=== PATIENT | male | born 1965 | race Caucasian/White ===

== ENCOUNTER 2018-06-04 22:29 | Observation (INO) ==
--- NOTE | 2018-06-05 02:21 | Internal Med History&Physical ---
Date of Encounter: 06/05/18 Time of Encounter: 02:20 Internal Medicine - H&P: HPI Chief complaint: fever, diarrhea Admitted From: Hospital to Hospital Transfer Plans for Post Hospital Care: Home History of present illness: Mr. Marroquin is a 53 year old male with past medical history of rheumatoid arthritis, psoriatic arthritis presents to clinic or emergency room with complaint of fever, diarrhea. Patient states that he has had fever since yesterday with a MAXIMUM TEMPERATURE of 102. He states that he measured his temperature to feeling fatigued, lethargic, chills. He states that he recently returned from a trip from [place] on Monday and symptoms started the day after. Notably he is taking Plaquenil for his rheumatoid arthritis. Starting this evening, patient also admits to 2 episodes of diarrhea. He states that it is loose and watery and has a foul smell to it. Also admits to associated epigastric cramping abdominal pain without radiation. Admits to blurry vision once as well as dizziness on rising. Denies any hematochezia or melena. Denies any nausea, vomiting, chest pain, shortness of breath, cough, dysuria, urinary frequency. Denies any sick contacts, recent hospitalizations, change the medication, recent antibiotics. He normally is tolerating oral intake at this time. In the [facility] emergency room, patient was notably febrile upon presentation at 103.3, tachycardic 124. Laboratory results significant for WBC elevation of 14.2 with left shift, sodium 133, labs otherwise within normal limits. Chest x- ray was obtained at [facility] was negative for acute abnormalities. He was given Tylenol and ibuprofen for fever, cefepime, vancomycin as well as 31 L bolus. He was transferred to [facility] due to [facility] being at capacity. Past medical history as above Past surgical history is extensive, abdominal surgery includes appendectomy Social history: Denies smoking, alcohol or drug use Family history unremarkable Past Med Surg Social Fam HX - Past Medical History Medical history: hypertension, kidney stones, RA Psychiatric history: no psych history - Past Surgical History Surgical History: appendectomy, orthopedic, other Additional surgical history: Bilat knee scopes. Reconstruction surgery bilat shoulder. Skull surgery, ankle surgery, foot surgery - Social History Smoking Status: Never smoker Smokeless Tobacco Status: Yes Alcohol use: occasionally Drug use: none - Family History Mother Living Status: Still Living Hx Family Cardiac Disorders: No Hx Family Respiratory Disorders: No Hx Family Cancer: No Hx Family GI Disorders: No Hx Family Genitourinary Disorders: No Hx Family Endocrine Disorder: No Hx Family Musculoskeletal Disorders: No Hx Family Neuromuscular Disorders: No Hx Family Neurologic Disorders: No Hx Family HEENT Disorders: No Hx Family Autoimmune Disorders: No Hx Family Reproductive Disorders: No Hx Family Psychosocial Disorders: No Hx Family Medical Disorders: No Father Living Status: Age at : 73 Cause of : Kidney cancer Hx Family Cancer: Yes Internal Medicine - H&P: Meds Acetameniphen 2 PO PRN PRN 06/04/18 [History] Hydroxychloroquine Sulfate [Plaquenil] 200 mg PO DAILY 06/04/18 [History] 3 Allergy/AdvReac Type Severity Reaction Status Date / Time No Known Allergies Allergy Verified 06/04/18 20:38 All Systems PM: A 10-system review of systems was performed and is negative for pertinent findings except as documented above in the HPI. - Constitutional Constitutional: chills, fatigue, fever(s), lethargy, malaise, weakness - EENT Eyes: blurry vision - Cardiovascular Cardiovascular ROS IM: lightheadedness, no chest pain, no diaphoresis, no dyspnea, no dyspnea on exertion, no edema, no orthopnea, no palpitations - Respiratory Respiratory: no cough, no dyspnea, no dyspnea on exertion, no wheezing, no change in phlegm color - Gastrointestinal Gastrointestinal: abdominal pain, change in bowel habits, change in stool character, cramping, diarrhea, loose stools, no bloating, no coffee ground emesis, no constipation, no dyspepsia, no early satiety, no hematemesis, no hematochezia, no melena, no nausea, no vomiting - Genitourinary Genitourinary ROS male: no dysuria, no hematuria, no urinary frequency - Integumentary Integumentary IM: rash (psoriasis, chronic) - Neurological Neurological ROS: weakness, no headache(s), no numbness, no tingling - Constitutional Vitals: Temp Pulse Resp BP Pulse Ox 99.0 F 102 17 113/79 95 06/05/18 01:15 06/05/18 01:15 06/05/18 01:15 06/05/18 01:15 06/05/18 01:15 Exam: Gen.: Vitals noted. No acute distress. AAOx3, resting comfortably in bed. HEENT: PERRL/EOMI, oropharynx clear, Normocephalic, atraumatic, MMM. Bilateral xanthomas Cardiac: RRR, no murmur, +S1/S2. Mildly tachycardic Pulmonary: CTA bilaterally, no wheezes, rales or rhonchi, equal chest expansion Abdomen: soft, mildly tender to palpation in epigastric, BS noted, no guarding, no rebound. Extremities: mild BLE edema, nontender calf, no cyanosis or clubbing, psoriatic lesion on left leg and back. patient reports chronic Neuro: A&Ox3, moves all extremities, no focal deficits Psych: Appropriate mood and behavior - Assessment and plan (1) Sepsis Current Visit: Yes Status: Acute Assessment and plan: - Septic on presentation meeting 3/4 sirs criteria including febrile with temperature of 103, tachycardic in 120s, WBC elevation at 14 - Likely etiology is GI given symptoms diarrhea. - Denies respiratory, urinary, integumentary, neurologic symptoms - Was started on cefepime and vancomycin at [facility] emergency room - Has already received 3 L normal saline bolus for resuscitation - Blood cultures drawn at [facility], GI panel pending Plan - Given immunocompromised status on Plaquenil for RA, will start on vancomycin and Zosyn - Patient is clinically improving. Tachycardia improved, temperature 99.0 - Maintenance fluids until diet is resumed tomorrow. Normal saline at 100 per hour - Low suspicion for C. difficile, minimal risk factors. We will not start oral vancomycin at this time Qualifiers: Sepsis type: sepsis due to unspecified organism Qualified Code(s): A41.9 - Sepsis, unspecified organism (2) Fever Current Visit: Yes Status: Acute Assessment and plan: As above and sepsis Likely infectious in etiology given diarrheal symptoms Continue Tylenol when necessary fever Qualifiers: Fever type: due to other condition Qualified Code(s): R50.81 - Fever presenting with conditions classified elsewhere (3) Gastroenteritis Current Visit: Yes Status: Acute Assessment and plan: As above Patient reports recent travel to [place] Low suspicion for C. difficile as above We will treat with supportive care via fluids, Tylenol Will start Antibiotics as above given immunocompromised status (4) DVT prophylaxis Current Visit: Yes Status: Acute Assessment and plan: Heparin 5000 units every 8 hours - Time Spent With Patient Total time spent is greater than 50% in coordination of care (as documented) at patient's floor/unit and/or counseling patient:
[2018-06-05] MEDS ORDERED: Naloxone 0.4 MG/ML INJ IVP PRN (02:56)
[2018-06-05] MEDS: 0.9 % Sodium Chloride 1,000 ML IVC SCH ×2 (03:45→14:00)
[2018-06-05 05:25] LABS: Basophils % 0.2 %; Eosinophils % 0.2 %; Hematocrit 43.4 % (37.5-50.1); Hemoglobin 14.4 g/dL (12.9-16.9); Immature Granulocytes % 0.2 % (0-4); Lymphocytes # 0.8 K/mcL (0.6-4.6); Lymphocytes % 6.6 %; Mean Corpuscular HGB Conc 33.2 g/dL (31.6-35.5); Mean Corpuscular Hemoglobin 29.7 pg (28.0-33.3); Mean Corpuscular Volume 89.5 fL (83.0-100.0); Mean Platelet Volume 10.9 fL (9.4-12.4); Monocytes # 0.6 K/mcL (0.0-1.3); Monocytes % 4.8 %; Neutrophils # 10.7 K/mcL (1.6-8.9); Platelet Count 159 K/mcL (140-400); Red Blood Count 4.85 M/mcL (4.19-5.50); Red Cell Distribution Width 13.1 % (11.5-14.5)
[2018-06-05 05:39] LABS: BUN/Creatinine Ratio 9 (6-26); Blood Urea Nitrogen 10 mg/dL (6-20); Carbon Dioxide 21 mEq/L (23-29); Chloride 105 mEq/L (98-107); Chol/HDL Ratio 3.9 (0-4.9); Glucose 112 mg/dL (70-105); Osmolality,Calculated 280 (280-300); Potassium 3.5 mEq/L (3.5-5.1); Sodium 135 mEq/L (136-145); eGFR For Non-African Americans > 60 (> 60)
[2018-06-05] MEDS: *HR* Heparin 5,000 UNIT/ML VIAL SQ SCH ×3 (06:06→22:12)
[2018-06-05] MEDS ORDERED: Piperacillin/Tazobactam 3.375 GM in 0.9 % Sodium Chloride Mini Bag 100 ML IVPB SCH (08:00)
[2018-06-05 09:44] LABS: Adenovirus F 40/41 PCR Not detected (Not detect); Astrovirus PCR Not detected (Not detect); C.difficile Toxin A/B by PCR Not detected (Not detect); Campylobacter by PCR Not detected (Not detect); Cryptosporidium by PCR Not detected (Not detect); Cyclospora cayetanensis PCR Not detected (Not detect); E. coli O157 by PCR Not detected (Not detect); Entamoeba histolytica PCR Not detected (Not detect); Enteroaggregative E.coli(EAEC) Not detected (Not detect); Enteropathogenic E.coli(EPEC) Not detected (Not detect); Enterotoxigenic E.coli (ETEC) Not detected (Not detect); Giardia lamblia PCR Not detected (Not detect); Norovirus GI/GII PCR Not detected (Not detect); Plesiomonas shigelloides PCR Not detected (Not detect); Rotavirus A PCR Not detected (Not detect); Sapovirus PCR Not detected (Not detect); Shig/EnteroinvasiveE coli EIEC Not detected (Not detect); Shigalike tox-prod E coli STEC Not detected (Not detect); Vibrio PCR Not detected (Not detect); Vibrio cholerae PCR Not detected (Not detect); Yersinia enterocolitica PCR Not detected (Not detect)
[2018-06-05 09:46] LABS: Salmonella PCR DETECTED (Not detect)
[2018-06-05] MEDS ORDERED: Aminoglycoside Consult 1 EACH MC ONE (10:38)
--- NOTE | 2018-06-05 13:29 | Internal Med Progress Note ---
Hospitalist Progress Note - Encounter Date of Encounter: 06/05/18 Time of Encounter: 13:29 - Subjective Interval History: 53-year-old male with rheumatoid arthritis and morbid obesity on Plaquenil at home with admitted and being managed for sepsis secondary to Salmonella enteritis. GI panel significant for Salmonella typhi. Patient continues to have diarrhea, hemodynamically stable, electrolytes are within normal limits. Admitting team had started patient on vancomycin and Zosyn. We will de-escalate antibiotics to ciprofloxacin IV every 12 hours. - Exam Vitals: Temp Pulse Resp BP Pulse Ox 98.5 F 92 18 126/83 95 06/05/18 11:14 06/05/18 11:14 06/05/18 11:14 06/05/18 11:14 06/05/18 11:14 Exam: VSS, now afebrile Gen: not in any form of distress, morbidly obese Neuro: No focal deficits HEENT: Xanthelasma, Moist oral mucosa, anicteric, not pale, no cyanosis Chest: CTAB Heart: S1, S2 only, no m/g/r, no JVD Abdomen: Soft, not tender, no palpably enlarged organs Extremities: No edema Skin: No rash - Assessment and Plan (1) Gastroenteritis Current Visit: Yes Status: Acute Assessment and Plan: Due to salmonella Continue supportive care IVF hydration Replace electrolytes prn Discontinue Vanco and Zosyn Start on Ciprofloxacin IV q12h Continue to monitor (2) Sepsis Current Visit: Yes Status: Acute Assessment and Plan: Met sepsis criteria on presentation with fever, tacycardia and leukocytosis Source is enteritis-Salmonella positive on stool panel Blood cultures prelim negative Received Cefepime, Vanco, Zosyn-discontinued Started on Ciprofloxacin 200mg IV q12h Continue IVF hydration Continue to monitor CBC Follow blood culture reports (3) DVT prophylaxis Current Visit: Yes Status: Acute Assessment and Plan: Heparin 5000 units every 8 hours (4) Salmonella enteritis Current Visit: Yes Status: Acute Assessment and Plan: as in sepsis (5) Morbid obesity Current Visit: Yes Status: Acute Assessment and Plan: encourage lifestyle modification - Time Spent with Patient Total time spent is greater than 50% in coordination of care (as documented) at patient's floor/unit and/or counseling patient: Plan of Care Discussed with: patient Internal Medicine: Result - Labs CBC & Chem 7: 06/05/18 04:55 06/05/18 04:55 Labs: Short CBC 06/05/18 Range/Units 04:55 WBC 12.2 H (4.3-11.1) K/mcL Hgb 14.4 (12.9-16.9) g/dL Hct 43.4 (37.5-50.1) % Plt Count 159 (140-400) K/mcL Neutrophils # 10.7 H (1.6-8.9) K/mcL BMP 06/05/18 04:55 Sodium 135 L Potassium 3.5 Chloride 105 Carbon Dioxide 21 L BUN 10 Creatinine 1.08 Glucose 112 H Calcium 9.0 Consult Discharge Plan - Plan Referrals: NONE,PCP [Primary Care Provider] - (2) Sepsis Qualifiers: Sepsis type: sepsis due to unspecified organism Qualified Code(s): A41.9 - Sepsis, unspecified organism
[2018-06-05] MEDS: Acetaminophen 325 MG TABLET PO PRN (15:39)
[2018-06-05] MEDS: *HR* HYDROcodone/Acet 5/325 mg TABLET PO PRN ×2 (17:23→22:12)
[2018-06-06 05:41] LABS: Basophils % 0.6 %; Eosinophils % 0.4 %; Hematocrit 39.9 % (37.5-50.1); Hemoglobin 13.3 g/dL (12.9-16.9); Immature Granulocytes % 0.1 % (0-4); Lymphocytes # 0.9 K/mcL (0.6-4.6); Lymphocytes % 13.1 %; Mean Corpuscular HGB Conc 33.3 g/dL (31.6-35.5); Mean Corpuscular Hemoglobin 29.8 pg (28.0-33.3); Mean Corpuscular Volume 89.3 fL (83.0-100.0); Mean Platelet Volume 11.2 fL (9.4-12.4); Monocytes # 0.4 K/mcL (0.0-1.3); Monocytes % 6.5 %; Neutrophils # 5.4 K/mcL (1.6-8.9); Platelet Count 139 K/mcL (140-400); Red Blood Count 4.47 M/mcL (4.19-5.50); Red Cell Distribution Width 13.2 % (11.5-14.5); Segmented Neutrophils % 79.3 %
[2018-06-06 06:02] LABS: BUN/Creatinine Ratio 8 (6-26); Blood Urea Nitrogen 7 mg/dL (6-20); Calcium 8.7 mg/dL (8.6-10.3); Carbon Dioxide 23 mEq/L (23-29); Chloride 105 mEq/L (98-107); Glucose 115 mg/dL (70-105); Osmolality,Calculated 281 (280-300); Potassium 3.4 mEq/L (3.5-5.1); Sodium 136 mEq/L (136-145); eGFR For Non-African Americans > 60 (> 60)
[2018-06-06] MEDS: *HR* Heparin 5,000 UNIT/ML VIAL SQ SCH ×3 (06:35→21:42)
[2018-06-06] MEDS: *HR* HYDROcodone/Acet 5/325 mg TABLET PO PRN ×3 (06:36→19:59)
--- NOTE | 2018-06-06 10:06 | Internal Med Progress Note ---
Hospitalist Progress Note - Encounter Date of Encounter: 06/06/18 Time of Encounter: 10:04 - Subjective Interval History: 53-year-old male with rheumatoid arthritis and morbid obesity on Plaquenil at home with admitted and being managed for sepsis secondary to Salmonella enteritis. GI panel significant for Salmonella typhi. Diarrhea has improved, hemodynamically stable No new complains this mrn, tolerating orally Blood culture prelim negative Stool culture with GNR - Exam Vitals: Temp Pulse Resp BP Pulse Ox 98.3 F 85 18 156/88 95 06/06/18 07:49 06/06/18 07:49 06/06/18 07:49 06/06/18 07:49 06/06/18 07:49 Exam: VSS, now afebrile Gen: not in any form of distress, morbidly obese Neuro: No focal deficits HEENT: Xanthelasma, Moist oral mucosa, anicteric, not pale, no cyanosis Chest: CTAB Heart: S1, S2 only, no m/g/r, no JVD Abdomen: Soft, not tender, no palpably enlarged organs Extremities: No edema Skin: No rash - Assessment and Plan (1) Gastroenteritis Current Visit: Yes Status: Acute Assessment and Plan: See salmonella enteritis (2) Sepsis Current Visit: Yes Status: Acute Assessment and Plan: Met sepsis criteria on presentation with fever, tacycardia and leukocytosis Source is enteritis-Salmonella positive on stool panel Blood cultures prelim negative Received Cefepime, Vanco, Zosyn-discontinued Started on Ciprofloxacin 200mg IV q12h 06/05-Day 27 Stool culture with GNR Hemodynamically stable, IVF discontinued Leukocytosis resolved Abdomen is non acute Follow final culture reports (3) DVT prophylaxis Current Visit: Yes Status: Acute Assessment and Plan: Heparin 5000 units every 8 hours, ambulate patient (4) Salmonella enteritis Current Visit: Yes Status: Acute Assessment and Plan: as in sepsis, continue cipr q12h -Day 12/13 (5) Morbid obesity Current Visit: Yes Status: Chronic Assessment and Plan: encourage lifestyle modification - Time Spent with Patient Total time spent is greater than 50% in coordination of care (as documented) at patient's floor/unit and/or counseling patient: Plan of Care Discussed with: patient Internal Medicine: Result - Labs CBC & Chem 7: 06/06/18 05:00 06/06/18 05:00 Labs: Short CBC 06/06/18 Range/Units 05:00 WBC 6.8 (4.3-11.1) K/mcL Hgb 13.3 (12.9-16.9) g/dL Hct 39.9 (37.5-50.1) % Plt Count 139 L (140-400) K/mcL Neutrophils # 5.4 (1.6-8.9) K/mcL BMP 06/06/18 05:00 Sodium 136 Potassium 3.4 L Chloride 105 Carbon Dioxide 23 BUN 7 Creatinine 0.91 Glucose 115 H Calcium 8.7 Consult Discharge Plan - Plan Referrals: NONE,PCP [Primary Care Provider] - (2) Sepsis Qualifiers: Sepsis type: sepsis due to unspecified organism Qualified Code(s): A41.9 - Sepsis, unspecified organism
[2018-06-06] MEDS: Acetaminophen 325 MG TABLET PO PRN (11:35)
[2018-06-07] MEDS: *HR* HYDROcodone/Acet 5/325 mg TABLET PO PRN (02:24)
[2018-06-07] MEDS: *HR* Heparin 5,000 UNIT/ML VIAL SQ SCH (05:41)
[2018-06-07 07:17] VITALS: BP 126/78
--- NOTE | 2018-06-07 10:05 | Discharge Summary ---
- NOTES TO OUTPATIENT PROVIDER Notes to Outpatient Provider: He was admitted for sepsis secondary to salmonella enteritis. Sepsis resolved and patient discharged on ciprofloxacin po for 7 more days. Follow up with PCP Date of Encounter: 06/07/18 Time of Encounter: 09:56 - Discharge Diagnosis (1) Gastroenteritis Priority: Primary Status: Resolved (2) Sepsis Priority: Primary Status: Resolved Qualifiers: Sepsis type: sepsis due to unspecified organism Qualified Code(s): A41.9 - Sepsis, unspecified organism (3) DVT prophylaxis Priority: Primary Status: Resolved (4) Salmonella enteritis Priority: Primary Status: Acute (5) Morbid obesity Priority: Secondary Status: Chronic Hospital course: Mr. Marroquin is a 53 year old male with PMH of Morbid Obesity who was admitted following complains of fever, multiple episodes of diarrhea and weakness He was on Plaquenil at home for RA He had met sepsis criteria on presentation with fever, tacycardia and leukocytosis Source is enteritis-Salmonella positive on stool panel Blood cultures remained negative He received Cefepime, Vanco, Zosyn-discontinued after stool panel result showed Salmonella and patient was started on IV Ciprofloxacin The patient has been afebrile, leukocytosis has resolved and he is hemodynamically stable Seen and examined this mrn at bedside, ambulatory, afebrile, no complains, abdomen is soft He is discharged home in stable clinical condition to complete 7 more days of cipro BID at home Follow up with PCP Discharge discussed with: patient, nurse - Time Spent with Patient Total time spent providing and/or coordinating discharge services: Less than 30 minutes - Discharge Medications Prescriptions: Ciprofloxacin [Cipro] 500 mg PO BID #14 tablet Home Medications: Hydroxychloroquine [Plaquenuil] 200 mg PO BID 06/05/18 [History] Ciprofloxacin [Cipro] 500 mg PO BID #14 tablet 06/07/18 [Rx] Allergies/Adverse Reactions: 3 Allergy/AdvReac Type Severity Reaction Status Date / Time No Known Allergies Allergy Verified 06/04/18 20:38 Date of admission: 06/05/18 00:40 Primary care physician: PCP NONE Discharging clinician: Solis Salas Anticipated date of discharge: 06/07/18 - Constitutional Vitals: Temp Pulse Resp BP Pulse Ox 97.7 F 75 18 126/78 97 06/07/18 07:14 06/07/18 07:14 06/07/18 07:14 06/07/18 07:14 06/07/18 08:00 VSS, now afebrile Gen: not in any form of distress, morbidly obese Neuro: No focal deficits HEENT: Xanthelasma, Moist oral mucosa, anicteric, not pale, no cyanosis Chest: CTAB Heart: S1, S2 only, no m/g/r, no JVD Abdomen: Soft, not tender, no palpably enlarged organs Extremities: No edema Skin: No rash - Patient Status Disposition: Home, Self-Care Condition: Good Functional capacity at discharge: independent ambulation Overall status at discharge: patient is back to baseline - Discharge Instructions Follow Up With: Shweta Mitchell, KIRSTEN [Advanced Practice Nurse] - 06/11/18 4:00 pm (Please follow up as schedule...) NONE,PCP [Primary Care Provider] - - Diet and Activity Activity: resume usual activities as tolerated Diet: regular diet
== END 2018-06-07 10:39 | disposition home or self-care (01) ==
LOC: 2ANU → SUATTDRO 06-05 00:40
PROVIDERS: ADMIT Family Medicine; ATTEND Internal Medicine